=== PATIENT | male | born 2000 | race Hispanic/Latino ===

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

== ENCOUNTER 2024-01-06 12:08 | Emergency (ER) | payer SELFPAY ==
[2024-01-06] MEDS ORDERED: ONDANSETRON 4 MG (ODT) TAB ONE (12:30)
[2024-01-06] MEDS ORDERED: IBUPROFEN 400 MG TAB ONE (12:30)
[2024-01-06] MEDS ORDERED: IBUPROFEN 200 MG TAB PO ONE (12:30)
[2024-01-06] MEDS ORDERED: HYDROCODONE/APAP 5/325 MG TAB ONE (12:31)
--- NOTE | 2024-01-06 13:21 | RAD REPORT ---
EXAM DESCRIPTION: RAD - Ankle Left 3 View -01/06/2024 1:04 pm CLINICAL HISTORY: Left ankle pain status post injury FINDINGS: Comminuted moderately to markedly displaced oblique fracture distal diaphysis left fibula. Widening of the medial clear space probably indicating a ligamentous injury
--- NOTE | 2024-01-06 13:33 | EDPHYS ---
Physician Documentation [facility] Name: Johnnie Camacho Age: 23 yrs Sex: Male : 2000 Arrival Date: 01/06/2024 Time: 12:08 Bed 12 Private MD: ED Physician Laron Bray HPI: 01/05 12:24 This 23 yrs old Male presents to ER via Wheelchair with complaints of Fall sb4 Injury, Ankle Injury. 12:24 Patient states that last night he tripped and twisted his left ankle. He presents this sb4 morning with bruising, swelling, and pain. He has not taken anything [id number]. He cannot bear weight. Denies any medical history, daily meds, prior surgeries. Does not report any other associated injuries. Historical: - Allergies: 12:17 No Known Allergies; ll1 - PMHx: 12:17 None; ll1 - PSHx: 12:17 None; ll1 - Immunization history:: Adult Immunizations up to date. - Social history:: Smoking status: Patient denies any tobacco usage or history of. - Immunization history: Last tetanus immunization: - up to date. ROS: 12:24 Constitutional: Negative for fever, chills, and weight loss, sb4 12:24 MS/extremity: Positive for injury or acute deformity, ecchymosis, pain, swelling, tenderness, of the left lateral ankle, left medial ankle and anterior aspect of left ankle, 12:24 All other systems are negative, Exam: 12:24 Constitutional: The patient appears alert, awake, in obvious pain, sb4 12:24 Musculoskeletal/extremity: ROM: limited active range of motion, limited passive range of motion due to pain, Circulation is intact in all extremities. Pulses: are normal with no appreciated deficits, Perfusion: the extremity is normally perfused throughout, Calf tenderness, is absent, Sensation intact. Joints: the left ankle displays pain at rest, painful range of motion, swelling, tenderness, Weight bearing: is unable to bear weight, bruising noted to anterior right ankle. 13:33 Head/Face: Normocephalic, atraumatic. Eyes: Extra-ocular motions intact. Periorbital sb4 areas with no swelling, redness, or edema. ENT: Mucous membranes moist. Vital Signs: 12:18 BP 136 / 72; Pulse 103; Resp 18; Temp 97.1; Pulse Ox 98% ; Weight 79.38 kg; Height 5 ll1 ft. 5 in. ; Pain 10/10; 12:18 Body Mass Index 29.12 (79.38 kg, 165.1 cm) ll1 12:18 Pain Scale: Adult ll1 Kd Coma Score: 12:44 Eye Response: spontaneous(4). Motor Response: obeys commands(6). Verbal Response: ll1 oriented(5). Total: 15. Trauma Score (Adult): 12:44 Eye Response: spontaneous(1); Verbal Response: oriented(1); Motor Response: obeys ll1 commands(2); Systolic BP: > 89 mm Hg(4); Respiratory Rate: 10 to 29 per min(4); [place] Score: 15; Trauma Score: 12 MDM: 12:15 Patient medically screened. sb4 12:24 Differential diagnosis: contusion, fracture, sprain, strain. sb4 12:51 Independent interpretation of the following test(s) in the Emergency Department X-Ray: sb4 My interpretation is my interpretation of the ankle xray images are mildly displaced distal fibula fracture. 13:30 Data reviewed: vital signs, nurses notes, radiologic studies, and as a result, I will sb4 discharge patient. Counseling: I had a detailed discussion with the patient and/or guardian regarding the historical points, exam findings, and any diagnostic results supporting the discharge/admit diagnosis, radiology results, the need for outpatient follow up, a orthopedic surgeon, to return to the emergency department if symptoms worsen or persist or if there are any questions or concerns that arise at home. 01/05 12:19 Order name: Ankle Left 3 View XRAY; Complete Time: 13:23 sb4 01/05 12:23 Order name: Ice pack; Complete Time: 12:37 sb4 01/05 13:24 Order name: Posterior Leg Splint; Complete Time: 13:41 sb4 01/05 13:24 Order name: Crutches; Complete Time: 13:41 sb4 Administered Medications: 12:38 Drug: HYDROcodone-acetaminophen PO 5 mg-325 mg 2 tabs PO once Route: PO; ll1 13:41 Follow up: Response: No adverse reaction as6 12:38 Drug: Ibuprofen PO 600 mg PO once Route: PO; ll1 13:41 Follow up: Response: No adverse reaction as6 12:40 Drug: Ondansetron Oral Disintegrating Tablet Oral Disintegrating Tablet 4 mg PO once ll1 {Note: administered at 1230. Couldn't change administration time.} Route: PO; 13:41 Follow up: Response: No adverse reaction as6 Disposition: 14:51 I was immediately available on-site in the Emergency Department for consultation in the ms3 care of the patient. Disposition Summary: 01/06/24 13:32 Discharge Ordered Notes: Location: Home sb4 Problem: new sb4 Symptoms: have improved sb4 Condition: Stable sb4 Diagnosis - oblique fracture distal left fibula sb4 - Sprain of unspecified ligament of left ankle sb4 Followup: sb4 - With: Cesaar Hope MD - When: 1 week - Reason: Recheck today's complaints, Re-evaluation by your physician Followup: sb4 - With: Sudhir Merrill MD - When: 1 week - Reason: Recheck today's complaints, Re-evaluation by your physician Followup: sb4 - With: Javad Jackson MD - When: 1 week - Reason: Recheck today's complaints, Re-evaluation by your physician Discharge Instructions: - Discharge Summary Sheet sb4 - Ankle Sprain sb4 - Tibial and Fibular Fractures sb4 Forms: - Medication Reconciliation Form sb4 - Thank You Letter sb4 - Prescription Opioid Use sb4 - Patient Portal Instructions sb4 - Leadership Thank You Letter sb4 Prescriptions: - Ibuprofen 800 mg Oral Tablet - take 1 tablet ORAL route every 8 hours As needed take with food; 30 tablet; sb4 Refills: 0, Product Selection Permitted Signatures: Dispatcher [employer] EDRI Sabina Townsend RN RN ll1 Laron Bray DO DO ms3 Teetee Murrell PA-C PA-C sb4 Tim Briones RN as6 Corrections: (The following items were deleted from the chart) 12:35 12:24 Musculoskeletal/extremity: ROM: limited active range of motion, limited passive sb4 range of motion due to pain, Circulation is intact in all extremities. Pulses: are normal with no appreciated deficits, Perfusion: the extremity is normally perfused throughout, Calf tenderness, is absent, Sensation intact. Joints: the left ankle displays pain at rest, painful range of motion, swelling, tenderness, Weight bearing: is unable to bear weight, sb4
--- NOTE | 2024-01-06 13:33 | ER ---
Nurse's Notes [facility] Name: Johnnie Camacho Age: 23 yrs Sex: Male : 2000 Arrival Date: 01/06/2024 Time: 12:08 Bed 12 Private MD: Diagnosis: oblique fracture distal left fibula;Sprain of unspecified ligament of left ankle Presentation: 01/05 12:18 Chief complaint: Patient states: L ankle pain, swelling. Tripped last night. ll1 Coronavirus screen: Client denies travel out of the [place] in the last 14 days. At this time, the client does not indicate any symptoms associated with coronavirus-19. Ebola Screen: Patient denies travel to an Ebola-affected area in the 21 days before illness onset. Initial Sepsis Screen: Does the patient meet any 2 criteria? No. Patient's initial sepsis screen is negative. Does the patient have a suspected source of infection? No. Patient's initial sepsis screen is negative. Risk Assessment: Do you want to hurt yourself or someone else? Patient reports no desire to harm self or others. Onset of symptoms was January 05, 2024. 12:18 Method Of Arrival: Wheelchair ll1 12:18 Acuity: COBY 4 ll1 Historical: - Allergies: 12:17 No Known Allergies; ll1 - PMHx: 12:17 None; ll1 - PSHx: 12:17 None; ll1 - Immunization history:: Adult Immunizations up to date. - Social history:: Smoking status: Patient denies any tobacco usage or history of. - Immunization history: Last tetanus immunization: - up to date. Screenin:43 [facility] ED Fall Risk Assessment (Adult) History of falling in the last 3 months, ll1 including since admission Yes- single mechanical fall (1 pt) Confusion or Disorientation No (0 pts) Intoxicated or Sedated No (0 pts) Impaired Gait Yes (1 pt) Mobility Assist Device Used Yes (1 pt) Altered Elimination No (0 pt) Score/Fall Risk Level 3 or more points = High Risk Maintained a safe environment, Hourly rounding (assess needs \T\ fall precautionary measures) done. Abuse screen: Denies threats or abuse. Nutritional screening: No deficits noted. Tuberculosis screening: No symptoms or risk factors identified. Primary Survey: 12:44 NO uncontrolled hemorrhage observed. A: The client is awake and alert. The airway is ll1 patent. Breathing/Chest: Spontaneous respiratory effort, equal unlabored respirations, breath sounds clear bilaterally, regular pattern, symmetrical chest rise and fall. Circulation: No external hemorrhage present. Regular and strong central pulse, skin warm/dry/normal color. Disability Client is alert. Exposure/Environment: There is no evidence of uncontrolled external bleeding. Assessment: 12:42 General: Appears uncomfortable, Behavior is calm, cooperative, appropriate for age. ll1 Pain: Complains of pain in left ankle Pain currently is 10 out of 10 on a pain scale. Quality of pain is described as aching. Musculoskeletal: Circulation, motion, and sensation intact. Capillary refill < 3 seconds, Swelling present in left ankle Tenderness present in left ankle. Injury Description: Twisted L ankle, bruising and swelling noted. Vital Signs: 12:18 BP 136 / 72; Pulse 103; Resp 18; Temp 97.1; Pulse Ox 98% ; Weight 79.38 kg; Height 5 ll1 ft. 5 in. ; Pain 10/10; 12:18 Body Mass Index 29.12 (79.38 kg, 165.1 cm) ll1 12:18 Pain Scale: Adult ll1 Kd Coma Score: 12:44 Eye Response: spontaneous(4). Motor Response: obeys commands(6). Verbal Response: ll1 oriented(5). Total: 15. Trauma Score (Adult): 12:44 Eye Response: spontaneous(1); Verbal Response: oriented(1); Motor Response: obeys ll1 commands(2); Systolic BP: > 89 mm Hg(4); Respiratory Rate: 10 to 29 per min(4); [place] Score: 15; Trauma Score: 12 ED Course: 12:11 Patient arrived in ED. ra3 12:12 Teetee Murrell PA-C is PHCP. sb4 12:12 Laron Bray DO is Attending Physician. sb4 12:19 Triage completed. ll1 12:19 Arm band placed on Patient placed in an exam room, on a stretcher. ll1 12:26 Sabina Townsend, BONY is Primary Nurse. ll1 12:44 Patient maintains SpO2 saturation greater than 95% on room air. ll1 13:06 Ankle Left 3 View XRAY In Process Unspecified. EDMS 13:30 Ceasar Hope MD is Referral Physician. sb4 13:30 Sudhir Merrill MD is Referral Physician. sb4 13:31 Javad Jackson MD is Referral Physician. sb4 13:42 Bed in low position. Call light in reach. Provided Education on: crutch walking . as6 13:42 No provider procedures requiring assistance completed. Patient did not have IV access as6 during this emergency room visit. Crutch training done. Orthoglass splint: Posterior short lleg splint applied on left leg. Administered Medications: 12:38 Drug: HYDROcodone-acetaminophen PO 5 mg-325 mg 2 tabs PO once Route: PO; ll1 13:41 Follow up: Response: No adverse reaction as6 12:38 Drug: Ibuprofen PO 600 mg PO once Route: PO; ll1 13:41 Follow up: Response: No adverse reaction as6 12:40 Drug: Ondansetron Oral Disintegrating Tablet Oral Disintegrating Tablet 4 mg PO once ll1 {Note: administered at 1230. Couldn't change administration time.} Route: PO; 13:41 Follow up: Response: No adverse reaction as6 Medication: 13:42 VIS not applicable for this client. as6 Outcome: 13:32 Discharge ordered by MD. sb4 13:42 Discharged to home ambulatory, with crutches, with family, as6 13:42 Condition: stable 13:42 Discharge instructions given to patient, Instructed on discharge instructions, follow up and referral plans. medication usage, Demonstrated understanding of instructions, follow-up care, medications, crutch walking, splint care, Prescriptions given X 1, 13:43 Patient left the ED. as6 Signatures: Dispatcher [employer] EDMS Sabina Townsend RN RN ll1 Tim Briones RN RN as6 Teetee Murrell, JULIANO PAHamzah etienne4 [place] Qiu ra3 Corrections: (The following items were deleted from the chart) 12:20 12:18 Pulse 103bpm; Resp 18bpm; Pulse Ox 98%; 79.38 kg; Height 5 ft. 5 in.; BMI: 29.1; ll1 Pain 10/10, Adult; ll1 12:41 12:18 BP 136 / 72; Pulse 103bpm; Resp 18bpm; Pulse Ox 98%; 79.38 kg; Height 5 ft. 5 ll1 in.; BMI: 29.1; Pain 10/10, Adult; ll1
[2024-01-06 14:05] VITALS: BP 136/72; TEMP 97.1; O2SAT 98
== END 2024-01-06 13:43 | disposition home or self-care (01) ==
LOC: ER 12:08
PROC: 2W3MX1Z Immobilization of Left Lower Extremity using Splint (ICD-10-PCS; principal; 2024-01-06)
DX: S82.432A Displaced oblique fracture of shaft of left fibula, initial encounter for closed fracture (principal); S93.402A Sprain of unspecified ligament of left ankle, initial encounter
CPT/HCPCS: 99284; Q0162